=== PATIENT | male | born 1990 | race Caucasian/White ===

== ENCOUNTER 2023-11-30 16:41 | Emergency (ER) | payer MEDICAID, OTHER ==
[~2023-11-30] VITALS: Ht 177.8 cm; Wt 90.5 kg
[2023-11-30 18:17] VITALS: BP 158/89; PULSE 97; RESP 17; TEMP 98.7; O2SAT 98
[2023-11-30] MEDS: TETANUS-DIPTH-ACEL PERTUSSIS 0.5ML SYR Tdap IM ONE (18:30)
[2023-11-30] MEDS: BACITRACIN TOP OINT 1 UD PKG TOP ONE (18:44)
== END 2023-11-30 18:53 | disposition home or self-care (01) ==
LOC: ER 16:48
DX: S61.012A Laceration without foreign body of left thumb without damage to nail, initial encounter (principal); I10 Essential (primary) hypertension; F32.9 Major depressive disorder, single episode, unspecified; F41.9 Anxiety disorder, unspecified; W26.8XXA Contact with other sharp object(s), not elsewhere classified, initial encounter; Y93.89 Activity, other specified; Y92.89 Other specified places as the place of occurrence of the external cause; Y99.8 Other external cause status
CPT/HCPCS: 12001; 90471; 90715